=== PATIENT | male | born 1950 | race Caucasian/White ===

== ENCOUNTER → 2018-09-17 | Day surgery (SDC) | payer MEDICARE, BC ==
[~2018-09-17] MED LIST: Lactated Ringers 1,000 ML IV SCH; Lidocaine 1% with EPINEPHrine 1:100,000 20 ML MDV ONE; Midazolam 1 MG/ML 2 ML SDV IV ONE; fentaNYL 100 MCG/2 ML SDV IV ONE
--- NOTE | 2018-09-17 17:45 | OR ---
DATE OF OPERATION: 09/17/2018 PREOPERATIVE DIAGNOSIS: POSSIBLE HEMORRHOIDS. POSTOPERATIVE DIAGNOSIS: POSTERIOR ANAL FISSURE. SURGEON: hCance Wade MD PROCEDURE: LATERAL INTERNAL SPHINCTEROTOMY. ANESTHESIA: Local plus MAC. SPECIMEN: None. INDICATIONS: This 68-year-old male has painful bowel movements, but feels like he has hemorrhoids also. Examination does not show external hemorrhoids, but could possibly have internal hemorrhoids. DESCRIPTION OF PROCEDURE: After adequate preparation, a perianal block was done using 1% Xylocaine with epinephrine. An anoscope was inserted and he had a large posterior anal fissure. He does have some internal hemorrhoids, but I think his major symptoms are due to the fissure. I made an incision in the left lateral part of the anal canal, identified the internal anal sphincter and divided the distal portion of this. There was a small proximal portion up in the anus, it is still left intact. There was some hemorrhoid bleeding over this. This was controlled using 3-0 Vicryl suture in a running locking fashion. No other abnormalities were noted. BPB/MODL /[id number]
[2018-09-17 18:31] VITALS: BP 138/71
== END ==
LOC: CC.SDS 13:47
PROVIDERS: ATTEND Surgery
DX: K60.2 Anal fissure, unspecified (principal); K64.8 Other hemorrhoids; I10 Essential (primary) hypertension; Z88.8 Allergy status to other drugs, medicaments and biological substances
CPT/HCPCS: 00902; J2250; J3010; J7120

== ENCOUNTER → 2021-05-24 | Day surgery (SDC) | payer MEDICARE, BC ==
[~2021-05-24] MED LIST changes: -Lidocaine 1% with EPINEPHrine 1:100,000 20 ML MDV ONE; -Midazolam 1 MG/ML 2 ML SDV IV ONE; +ceFAZolin 1 GM Vial IVPUSH ONE; -fentaNYL 100 MCG/2 ML SDV IV ONE
--- NOTE | 2021-05-24 12:02 | OR ---
DATE OF OPERATION: 05/24/2021 PREOPERATIVE DIAGNOSIS: 1. CHRONIC CHOLECYSTITIS. 2. CHOLELITHIASIS. POSTOPERATIVE DIAGNOSIS: 1. CHRONIC CHOLECYSTITIS. 2. CHOLELITHIASIS. SURGEON: Chance Wade MD PROCEDURE: LAPAROSCOPIC CHOLECYSTECTOMY. ANESTHESIA: General. ESTIMATED BLOOD LOSS: Minimum. SPECIMEN: Gallbladder and stone. INDICATION FOR PROCEDURE: This 71-year-old male has symptomatic right upper quadrant abdominal pain. Ultrasound shows a stone impacted in Mary pouch. DESCRIPTION OF PROCEDURE: After adequate preparation, an infraumbilical incision was made and a Veress needle placed intra-abdominally for insufflation. This was then exchanged for 5 mm trocar. Three other right upper quadrant trocars were placed under direct vision. Examination of the abdomen showed dense adhesions of the omentum around the gallbladder. These had to be taken down by some blunt and tearing but also using cautery to detach it from the gallbladder. The cystic triangle structures were then easily isolated. They were , triply clipped and divided. The gallbladder was taken off the liver bed using cautery dissection. No spillage of stones or bile. The rest of the intra-abdominal examination is normal. The gallbladder was placed within a sterile retrieval bag and brought out through the epigastric trocar site. The abdomen was desufflated and the skin closed with Vicryl. BPB/[facility] /[id number]
[2021-05-24 14:52] VITALS: BP 128/70; PULSE 80
== END ==
LOC: CC.SDS 07:12
PROVIDERS: ATTEND Surgery
DX: K80.10 Calculus of gallbladder with chronic cholecystitis without obstruction (principal); M10.9 Gout, unspecified; I10 Essential (primary) hypertension; E78.00 Pure hypercholesterolemia, unspecified; E87.6 Hypokalemia; G56.00 Carpal tunnel syndrome, unspecified upper limb; Z88.8 Allergy status to other drugs, medicaments and biological substances; Z79.899 Other long term (current) drug therapy; Z98.890 Other specified postprocedural states
CPT/HCPCS: 47562; 88304; J0690; J7030; J7120; 00790

== ENCOUNTER → 2021-07-27 | Day surgery (SDC) | payer MEDICARE, BC ==
[~2021-07-27] MED LIST changes: +Ketamine 200 MG/20 ML MDV ONE; +Midazolam 1 MG/ML 2 ML SDV ONE; +Propofol 200 MG/20 ML SDV ONE; -ceFAZolin 1 GM Vial IVPUSH ONE; +fentaNYL 100 MCG/2 ML SDV ONE
[2021-07-27 10:52] VITALS: BP 125/81; PULSE 63
== END ==
LOC: CC.SDS 08:56
PROVIDERS: ATTEND Family Medicine
DX: Z12.11 Encounter for screening for malignant neoplasm of colon (principal); I10 Essential (primary) hypertension; E78.00 Pure hypercholesterolemia, unspecified; C61 Malignant neoplasm of prostate; G25.0 Essential tremor; M10.9 Gout, unspecified; Z79.899 Other long term (current) drug therapy; Z88.8 Allergy status to other drugs, medicaments and biological substances
CPT/HCPCS: J2250; J2704; J3010; J7120